=== PATIENT | female | born 1940 | race Caucasian/White ===

== ENCOUNTER → 2023-12-02 15:17 | Outpatient (REF) | payer MEDICARE, OTHER, SELFPAY ==
[2023-12-02 16:09] LABS: % Basophils 1.1 % (0-2); % Eosinophils 2.2 % (0-6); % Immature Granulocytes 0.3 % (0-0.5); % Monocytes 10.9 % (1.7-9.3); % Neutrophils 45.5 % (42.2-75.2); Absolute Basophils 0.1 10^3/uL (0-0.2); Absolute Eosinophils 0.1 10^3/uL (0-0.7); Absolute Lymphocytes 2.5 10^3/uL (1.2-3.4); Absolute Monocytes 0.7 10^3/uL (0.1-0.6); Absolute Neutrophils 2.9 10^3/uL (1.4-6.5); Hematocrit 41.9 % (37.0-47.0); Hemoglobin 13.5 g/dL (12.0-16.0); Mean Corp Hgb Conc. 32.2 g/dL (33.0-37.0); Mean Corpuscular Hgb 31.1 pg (27.0-31.0); Mean Corpuscular Volume 96.5 fL (81.0-99.0); Mean Platelet Volume 11.1 fL (7.4-10.4); Nucleated Red Blood Cells % 0 %; Platelet Count 271 10^3/uL (130-400); Red Blood Cell Count 4.34 10^6/uL (4.20-5.40); Red Cell Dist. Width 12.9 % (11.5-14.5); White Blood Cell Count 6.4 10^3/uL (4.8-10.8)
[2023-12-02 16:21] LABS: Erythrocyte Sed Rate 20 mm/hour (0-20)
== END ==
LOC: REG 15:17
PROVIDERS: ATTENDING PHYSICIAN Specialist
DX: M25.561 Pain in right knee (principal); E03.9 Hypothyroidism, unspecified
CPT/HCPCS: 36415; 85025; 85652; 86140

== ENCOUNTER → 2023-12-15 09:22 | Outpatient (REF) | payer MEDICARE, OTHER, SELFPAY | LOC: RAD 09:22 | PROVIDERS: ATTENDING PHYSICIAN Specialist; FAMILY PHYSICIAN Family Medicine | DX: M25.561 Pain in right knee (principal); Z96.651 Presence of right artificial knee joint | CPT/HCPCS: 78315; A9503 ==

== ENCOUNTER → 2023-12-23 12:59 | Outpatient (REF) | payer MEDICARE, OTHER, SELFPAY | LOC: WDC 12:59 | PROVIDERS: ATTENDING PHYSICIAN Family Medicine | DX: Z12.31 Encounter for screening mammogram for malignant neoplasm of breast (principal); M81.0 Age-related osteoporosis without current pathological fracture | CPT/HCPCS: 77063; 77067; 77080 ==

== ENCOUNTER → 2024-01-29 10:07 | Outpatient (REF) | payer MEDICARE, OTHER, SELFPAY | LOC: RCS 10:07 | PROVIDERS: ATTENDING PHYSICIAN Physician Assistant | DX: R07.9 Chest pain, unspecified (principal); R03.0 Elevated blood-pressure reading, without diagnosis of hypertension | CPT/HCPCS: 93306 ==

== ENCOUNTER → 2024-06-17 10:24 | Outpatient (REF) | payer OTHER, MEDICARE, SELFPAY | LOC: MRI 3T 10:24 | PROVIDERS: ATTENDING PHYSICIAN Physician Assistant Surgical; FAMILY PHYSICIAN Family Medicine | DX: M54.41 Lumbago with sciatica, right side (principal); M54.16 Radiculopathy, lumbar region | CPT/HCPCS: 72148 ==

== ENCOUNTER → 2024-09-22 13:57 | Outpatient (REF) | payer OTHER, SELFPAY | LOC: EMG 13:57 | PROVIDERS: ATTENDING PHYSICIAN Physician Assistant | DX: M79.2 Neuralgia and neuritis, unspecified (principal) | CPT/HCPCS: 95886; 95911 ==

== ENCOUNTER → 2024-12-28 13:04 | Outpatient (REF) | payer OTHER, MEDICARE, SELFPAY | LOC: WDC 13:04 | PROVIDERS: ATTENDING PHYSICIAN Family Medicine | DX: Z12.31 Encounter for screening mammogram for malignant neoplasm of breast (principal) | CPT/HCPCS: 77063; 77067 ==